=== PATIENT | female | born 1975 | race Caucasian/White ===

== ENCOUNTER 2018-03-05 13:41 | Emergency (ER) | payer MEDICAID ==
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
[2018-03-05 14:21] LABS: PLATELET COUNT 384 10^3/uL (150-400)
[2018-03-05] MEDS ORDERED: IOPAMIDOL (ISOVUE 370) 100 ML BTL IV ONE (14:31)
--- NOTE | 2018-03-05 14:36 | CPEKG ---
Heart Rate: 79 RR Interval: 759 P-R Interval: 160 QRSD Interval: 72 QT Interval: 388 QTC Interval: 445 P [place]: 28 QRS [place]: 10 T Wave [place]: 15 EKG Severity - NORMAL ECG - EKG Impression: SINUS RHYTHM Electronically Signed By: Theresa Cunningham 06-Mar-2018 14:09:19
[2018-03-05 14:53] LABS: INR 0.95 (0.83-1.16); PROTIME(PATIENT) 12.9 SEC (12.0-15.0)
[2018-03-05] MEDS ORDERED: DEXAMETHASONE 10 MG/ML VIAL IVP ONE (15:45)
[2018-03-05] MEDS ORDERED: KETOROLAC 30 MG/1 ML SDV IVP ONE (15:45)
[2018-03-05] MEDS ORDERED: METOCLOPRAMIDE 10 MG/2 ML VIAL IVP ONE (15:45)
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
[2018-03-05 18:40] VITALS: BP 113/74
== END 2018-03-05 18:40 | disposition home or self-care (01) ==
DX: G43.909 Migraine, unspecified, not intractable, without status migrainosus (principal); E11.9 Type 2 diabetes mellitus without complications
CPT/HCPCS: 82435-PO; 82565-PO; 82947-PO; 84132-PO; 84295-PO; 84520-PO; 85014-PO; 96374; J1100; J1200; J1885; J2765; Q9967